=== PATIENT | female | born 2000 | race African-American/Black ===

== ENCOUNTER 2022-07-08 12:50 | Emergency (ER) | payer OTHER, MEDICAID | END 2022-07-08 14:29 | disposition home or self-care (01) | LOC: ERS 12:50 | DX: M79.10 Myalgia, unspecified site (principal); V49.40XA Driver injured in collision with unspecified motor vehicles in traffic accident, initial encounter; Y92.410 Unspecified street and highway as the place of occurrence of the external cause | CPT/HCPCS: 71045 ==